=== PATIENT | female | born 1975 | race Caucasian/White ===

== ENCOUNTER 2017-01-08 09:54 | Emergency (ER) | payer OTHER ==
[2017-01-08 10:05] VITALS: RESP 18
--- NOTE | 2017-01-08 10:36 | C.PDOC ---
History Of Present Illness The patient, a 41y/o female who is currently , presents to the ED for a repeat ultrasound as instructed. Patient states she was seen in the ED around 1 week ago and was informed that she is positive for . Patient was also told that she has a Urinary Tract Infection and was advised to return for a repeat ultrasound (reason unknown). Patient denies fever, chills, abdominal pain , nausea, vomiting, vaginal bleeding. Time Seen by Provider: 01/08/17 10:10 Chief Complaint (Nursing): Female Genitourinary History Per: Patient History/Exam Limitations: no limitations Current Symptoms Are (Timing): Still Present Quality Of Discomfort: denies: "Pain" Associated Symptoms: denies: Fever, Chills, Nausea, Vomiting Abnormal Vaginal Bleeding: No Past Medical History Reviewed: Historical Data, Nursing Documentation, Vital Signs Vital Signs: Last Vital Signs Temp 98.1 F 01/08/17 12:40 Pulse 80 01/08/17 12:40 Resp 18 01/08/17 12:40 BP 112/68 01/08/17 12:40 Pulse Ox 98 01/08/17 12:40 - Medical History PMH: No Chronic Diseases Surgical History: No Surg Hx Family History: States: Unknown Family Hx - Social History Hx Alcohol Use: No Hx Substance Use: No - Immunization History Hx Tetanus Toxoid Vaccination: Yes Hx Influenza Vaccination: No Hx Pneumococcal Vaccination: Yes Review Of Systems Except As Marked, All Systems Reviewed And Found Negative. Constitutional: Negative for: Fever, Chills Gastrointestinal: Negative for: Nausea, Vomiting, Abdominal Pain Genitourinary: Positive for: Other (repeat ultrasound ). Negative for: Vaginal Bleeding Physical Exam - Physical Exam Appears: Non-toxic, No Acute Distress Skin: Normal Color, Warm, Dry Eye(s): bilateral: Normal Inspection, EOMI Nose: Normal Throat: Normal Neck: Supple Cardiovascular: Rhythm Regular Respiratory: Normal Breath Sounds Gastrointestinal/Abdominal: Soft, No Tenderness, No Guarding, No Rebound Back: Normal Inspection, No Vertebral Tenderness, No Paraspinal Tenderness Extremity: Normal ROM, Capillary Refill (less than 2 seconds) Neurological/Psych: Oriented x3, Normal Speech, Normal Cognition Gait: Steady ED Course And Treatment - Laboratory Results Result Diagrams: 01/08/17 10:39 Lab Interpretation: Normal Urine POC: Positive O2 Sat by Pulse Oximetry: 97 (on RA) Pulse Ox Interpretation: Normal - CT Scan/US OB Transvaginal US Other Rad Studies (CT/US): Interpreted By Me, Read By Radiologist, Radiology Report Reviewed CT/US Interpretation: Accession No. : [id number]. Patient Name / ID : ANATOLY Bell / [id number]. Exam Date : 01/08/2017 11:30:59 ( Approved ). Study Comment : Sex / Age : F / [id number]. Creator : Birdie Rios MD. Dictator : Birdie Rios MD. Registered Nurse Practitioner : It Technical Support Specialist : Birdie Rios MD. Approver2 : Report Date : 01/08/2017 11:58:54. My Comment : . Indication: Bleeding. Comparison: None available. Technique: Pelvis/ transvaginal ultrasound. Findings: The uterus measures approximately 9.2 x 5.0 x 5.5 cm. Heterogeneous uterine echotexture limits evaluation for small masses or fibroids. Anteverted. Endometrium measures approximately 1.1 cm in diameter. Two tiny cystic structures are noted within the endometrium. Cervix length measures approximately 3.4 cm. The right ovary measures 2.7 x 2.0 x 2.2 cm. The left ovary measures 1.6 x 1.1 x 2.6 cm. Blood flow was demonstrated to both ovaries. Impression: Two tiny cystic structures are noted within the endometrium of unclear significance. No definite intrauterine gestational sac evident. If indeed the patient is based on serum beta HCG values, the sonographic findings represent either: Very early IUP; embryonic demise; ectopic gestation. Follow-up with serial quantitative serum beta HCG measurements and post OBGYN follow-up is mandatory, since ectopic gestation cannot be excluded based only on sonographic findings. Heterogeneous uterine echotexture. Progress Note: labs and OB Transvaginal US ordered and reviewed. On re- evaluation, abdomen soft, in no distress Reassessment Condition: Unchanged Disposition Counseled Patient/Family Regarding: Studies Performed, Diagnosis, Need For Followup - Disposition Referrals: [facility] [Outside] [email or web address] [Outside] Disposition: HOME/ ROUTINE Disposition Time: 12:30 Condition: STABLE Additional Instructions: Follow up with OB for further evaluation Instructions: Spontaneous Miscarriage (ED) - POA Present On Arrival: None - Clinical Impression Clinical Impression: Threatened - PA / SILK TRIMMER / Resident Statement MD/DO has reviewed & agrees with the documentation as recorded. - Scribe Statement The provider has reviewed the documentation as recorded by the Scribe (Ana Paula Rodas) All medical record entries made by the Scribe were at my direction and personally dictated by me. I have reviewed the chart and agree that the record accurately reflects my personal performance of the history, physical exam, medical decision making, and the department course for this patient. I have also personally directed, reviewed, and agree with the discharge instructions and disposition.
[2017-01-08 10:44] LABS: BASO # 0.1 K/uL (0.0-0.2); BASO % 1.1 % (0.0-2.0); EOS # 0.1 K/uL (0.0-0.7); EOS % 1.2 % (0.0-4.0); HEMATOCRIT 40.3 % (34.0-47.0); LYMPH # 2.4 K/uL (1.0-4.3); LYMPH % 32.2 % (20.0-40.0); MEAN CELL VOLUME 84.8 fL (81.0-99.0); MEAN CORPUSCULAR HEMOGLOBIN 28.2 pg (27.0-31.0); MEAN CORPUSCULAR HGB CONC 33.3 g/dL (33.0-37.0); MEAN PLATELET VOLUME 7.4 fL (7.2-11.7); MONO # 0.6 K/uL (0.0-0.8); MONO % 8.2 % (0.0-10.0); RED CELL DISTRIBUTION WIDTH 12.8 % (11.5-14.5); WHITE BLOOD COUNT 7.3 K/uL (4.8-10.8)
[2017-01-08 10:45] LABS: URINE BILIRUBIN NEGATIVE (NEGATIVE); URINE COLOR Straw (YELLOW); URINE GLUCOSE (UA) NORMAL (Normal); URINE KETONE NEGATIVE (NEGATIVE); URINE LEUKOCYTE ESTERASE NEG Leu/uL (Negative); URINE PROTEIN NEGATIVE (NEGATIVE); URINE UROBILINOGEN NORMAL mg/dL (0.2-1.0); WBC URINE 1 /hpf (0-5)
[2017-01-08 10:49] LABS: RBC URINE 3 /hpf (0-3); URINE BACTERIA RARE (<OCC)
[2017-01-08 11:01] LABS: URINE BLOOD 1+ (NEGATIVE)
--- NOTE | 2017-01-08 12:00 | US ---
Indication: Bleeding Comparison: None available Technique: Pelvis/transvaginal ultrasound Findings: The uterus measures approximately 9.2 x 5.0 x 5.5 cm. Heterogeneous uterine echotexture limits evaluation for small masses or fibroids. Anteverted. Endometrium measures approximately 1.1 cm in diameter. Two tiny cystic structures are noted within the endometrium. Cervix length measures approximately 3.4 cm. The right ovary measures 2.7 x 2.0 x 2.2 cm. The left ovary measures 1.6 x 1.1 x 2.6 cm. Blood flow was demonstrated to both ovaries. Impression: Two tiny cystic structures are noted within the endometrium of unclear significance. No definite intrauterine gestational sac evident. If indeed the patient is based on serum beta HCG values, the sonographic findings represent either: Very early IUP; embryonic demise; ectopic gestation. Follow-up with serial quantitative serum beta HCG measurements and post OBGYN follow-up is mandatory, since ectopic gestation cannot be excluded based only on sonographic findings. Heterogeneous uterine echotexture.
[2017-01-08 12:42] VITALS: BP 112/68; PULSE 80; TEMP 98.1
[2017-01-08 17:59] VITALS: O2SAT 97
== END 2017-01-08 12:40 | disposition home or self-care (01) ==
LOC: C.ER 09:54
DX: O20.0 Threatened abortion (principal); Z3A.00 Weeks of gestation of pregnancy not specified